=== PATIENT | male | born 1980 | race Native Hawaiian/Other Pacific Islander ===

== ENCOUNTER 2021-03-22 15:42 | Inpatient (IN) | payer BC ==
[~2021-03-22] VITALS: Ht 160 cm; Wt 81.3 kg
[2021-03-22] MEDS ORDERED: INSLAN SQ (15:48)
[2021-03-22] MEDS ORDERED: INSU100C14 SQ (15:48)
[2021-03-22] MEDS ORDERED: LISI-894 PO (15:48)
[2021-03-22 16:12] LABS: COVID AG,FIA SOURCE NASOPHARYNGEAL
[2021-03-22 16:13] LABS: BASOPHILS % (AUTO) 0.6 % (0.0-2.0); EOSINOPHILS % (AUTO) 0 % (1.0-6.0); HEMATOCRIT 44.1 % (41-53); HEMOGLOBIN 15.2 g/dL (13.5-17.5); LYMPHOCYTES # (AUTO) 0.4 K/uL (1.0-4.8); LYMPHOCYTES % (AUTO) 7.1 % (22.0-44.0); MEAN CORPUSCULAR HEMOGLOBIN 30.7 pg (26.0-34.0); MEAN CORPUSCULAR HGB CONC 34.6 G/dL (31.0-37.0); MEAN CORPUSCULAR VOLUME 89 fL (80-100); MONOCYTES # (AUTO) 0.6 K/uL (0.1-1.0); MONOCYTES % (AUTO) 9.5 % (2.0-9.0); NEUTROPHILS # (AUTO) 5.2 K/uL (1.8-7.7); NEUTROPHILS % (AUTO) 82.8 % (40.0-70.0); PLATELET COUNT (AUTO) 182 K/uL (150-450); RED BLOOD CELL COUNT(AUTO) 4.97 MIL/uL (4.50-5.90); RED CELL DISTRIBUTION WIDTH 12.9 % (11.5-14.5)
[2021-03-22] MEDS ORDERED: SODIUM CHLORIDE 0.9% 1,000 ML IV ONE ×2 (16:15→16:30)
[2021-03-22 16:20] LABS: ANION GAP 18 mmol/L (8-16); CALCIUM, TOTAL 8.6 mg/dL (8.8-10.5); CARBON DIOXIDE 23 mmol/L (22-29); CHLORIDE 96 mmol/L (98-107); CREATININE 0.88 mg/dL (0.60-1.30); GLOMERULAR FILTR. RATE CALC > 60 mL/min (>60); GLUCOSE,RANDOM 343 mg/dL (70-110); POTASSIUM 3.7 mmol/L (3.5-5.1); SODIUM SERUM 137 mmol/L (136-145); UREA NITROGEN, BLOOD 11 mg/dL (7-18)
[2021-03-22 16:26] LABS: ALANINE AMINOTRANSFERASE 27 U/L (12-78); ALBUMIN 3.2 g/dL (3.4-5.0); ALKALINE PHOSPHATASE 57 U/L (46-116); ASPARTATE AMINOTRANSFERASE 27 U/L (15-37); BILIRUBIN,TOTAL 0.5 mg/dL (0.1-1.0); CREATINE KINASE, TOTAL ONLY 66 U/L (39-308); D-DIMER 0.44 mg/L FEU (0.00-0.50); PROTHROMBIN TIME 10.4 SEC (9.4-11.6); TOTAL PROTEIN, SERUM 7.4 g/dL (6.4-8.2)
[2021-03-22] MEDS ORDERED: AZITHROMYCIN 500 MG/NS 250 ML IV ONE (16:30)
[2021-03-22] MEDS ORDERED: ACETAMINOPHEN 1000 MG/ISO-OSM 100 ML IV ONE (16:30)
[2021-03-22] MEDS ORDERED: CefTRIAXone 1 GM/DEXTROSE 50 ML IV ONE (16:30)
[2021-03-22 16:41] LABS: SOURCE, BLOOD GAS ARTERIAL; TEMPERATURE, FAHRENHEIT, BG 99.5 FAHREN (96.0-98.6)
[2021-03-22 16:42] LABS: B-TYPE NATRIURETIC PEPTIDE 23 pg/mL (0-100)
[2021-03-22 16:57] LABS: ABG BASE EXCESS -5.1 mmol/L (-2.0-3.0); ABG CARBOXYHEMOGLOBIN 0.6 % (0.0-1.5); ABG HCO3 20.9 mmol/L (22.0-26.0); ABG METHEMOGLOBIN 0.3 % (0.0-1.5); ABG OXYGEN CONTENT 18.2 mL/dL (15.0-23.0); ABG OXYGEN SATURATION 94.6 % (95.0-98.0); ABG OXYHEMOGLOBIN 93.7 % (94.0-100.0); ABG PCO2 34 mmHg (35-45); ABG PH 7.381 (7.35-7.450); ABG TOTAL HEMOGLOBIN 13.8 G/dL (12.0-18.0); O2 DEVICE,BLOOD GAS HFNC (ROOM AIR); PO2, ARTERIAL BG 77.5 mmHg (88.0-96.0); SITE, BLOOD GAS RT RADIAL
[2021-03-22 17:06] LABS: INFLUENZA TYPE A NEGATIVE FOR TYPE A (NEGATIVE); INFLUENZA TYPE B NEGATIVE FOR TYPE B (NEGATIVE)
[2021-03-22] MEDS ORDERED: ONDANSETRON HCL 4 MG/2 ML VIAL IVP PRN (17:45)
[2021-03-22] MEDS ORDERED: ALBUTEROL SULFATE HFA 90 MCG/PUFF 8 GM INHALER IH PRN (17:45)
[2021-03-22] MEDS ORDERED: DEXTROSE 50%-WATER 25 GM/50 ML SYRINGE IVP PRN (17:45)
[2021-03-22] MEDS ORDERED: ACETAMINOPHEN 325 MG TABLET PO PRN (17:45)
[2021-03-22] MEDS ORDERED: TOCILIZUMAB 640 MG in SODIUM CHLORIDE 0.9% 68 ML IV ONE (18:00)
[2021-03-22] MEDS ORDERED: REMDESIVIR 200 MG in SODIUM CHLORIDE 0.9% 250 ML IV ONE (18:15)
[2021-03-22] MEDS: DEXAMETHASONE SOD PHOS 4 MG/ML VIAL IVP SCH (18:19)
[2021-03-22 20:35] VITALS: BP 122/62
[2021-03-22] MEDS ORDERED: INSULIN GLARGINE,HUM.REC.ANLOG 100 UNITS/ML SQ SCH (21:00)
[2021-03-22 21:03] LABS: APPEARANCE,URINE CLEAR (CLEAR); BILIRUBIN,URINE NEGATIVE (NEGATIVE); GLUCOSE, URINE (UA) >=1000 mg/dL (NEGATIVE); KETONES,URINE >=80 mg/dL (NEGATIVE); LEUKOCYTE ESTERASE ,URINE NEGATIVE (NEGATIVE); NITRATE,URINE NEGATIVE (NEGATIVE); OCCULT BLOOD,URINE NEGATIVE (NEGATIVE); PH,URINE 5.5 (5.0-8.0); PROTEIN,URINE SEE CONFIRM (NEGATIVE); UROBILINOGEN,URINE 0.2 mg/dL (<=1.0)
[2021-03-22] MEDS: DOCUSATE SODIUM 100 MG CAPSULE PO SCH (21:07)
[2021-03-22] MEDS: BENZONATATE 100 MG CAPSULE PO PRN (21:07)
[2021-03-22] MEDS: FAMOTIDINE 20 MG TABLET PO SCH (21:08)
[2021-03-22 21:10] LABS: SULFOSALICYLIC ACID,URINE 2+ (Negative)
[2021-03-22] MEDS: INSULIN LISPRO 100 UNITS/ML SQ PRN (21:10)
[2021-03-22 21:36] LABS: RBC,URINE None Seen /HPF (0-2); WBC,URINE 0-2 /HPF (0-5)
[2021-03-22 21:37] LABS: BACTERIA,URINE Rare /HPF (None Seen)
[2021-03-22] MEDS: HEPARIN SODIUM,PORCINE 5,000 UNITS/ML VIAL SQ SCH (23:59)
[2021-03-23 00:18] VITALS: BP 109/76
[2021-03-23 04:22] VITALS: BP 101/69
[2021-03-23] MEDS: INSULIN LISPRO 100 UNITS/ML SQ PRN ×4 (05:53→21:14)
[2021-03-23 07:33] VITALS: BP 111/64
[2021-03-23] MEDS: HEPARIN SODIUM,PORCINE 5,000 UNITS/ML VIAL SQ SCH ×3 (09:26→23:52)
[2021-03-23] MEDS: DEXAMETHASONE SOD PHOS 4 MG/ML VIAL IVP SCH (09:26)
[2021-03-23] MEDS: DOCUSATE SODIUM 100 MG CAPSULE PO SCH ×2 (09:26→21:15)
[2021-03-23] MEDS: FAMOTIDINE 20 MG TABLET PO SCH ×2 (09:26→21:15)
[2021-03-23 11:17] VITALS: BP 123/73
[2021-03-23] MEDS ORDERED: DEXTROSE 50%-WATER 25 GM/50 ML SYRINGE IVP PRN (11:30)
[2021-03-23] MEDS: CefTRIAXone 1 GM/DEXTROSE 50 ML IV SCH (17:11)
[2021-03-23] MEDS: AZITHROMYCIN 500 MG/NS 250 ML IV SCH (17:42)
[2021-03-23] MEDS: REMDESIVIR 100 MG in SODIUM CHLORIDE 0.9% 250 ML IV SCH (18:51)
[2021-03-23 19:51] VITALS: BP 124/80
[2021-03-23] MEDS: INSULIN GLARGINE,HUM.REC.ANLOG 100 UNITS/ML SQ SCH (21:14)
[2021-03-23 23:58] VITALS: BP 116/82
[2021-03-24] MEDS: BENZONATATE 100 MG CAPSULE PO PRN ×2 (00:06→12:06)
[2021-03-24 04:13] VITALS: BP 109/72
[2021-03-24] MEDS: INSULIN LISPRO 100 UNITS/ML SQ PRN ×4 (06:06→20:56)
[2021-03-24 07:36] LABS: ALANINE AMINOTRANSFERASE 24 U/L (12-78); ALBUMIN 2.8 g/dL (3.4-5.0); ALKALINE PHOSPHATASE 53 U/L (46-116); ANION GAP 7 mmol/L (8-16); ASPARTATE AMINOTRANSFERASE 34 U/L (15-37); BILIRUBIN,TOTAL 0.4 mg/dL (0.1-1.0); CALCIUM, TOTAL 8.8 mg/dL (8.8-10.5); CARBON DIOXIDE 30 mmol/L (22-29); CHLORIDE 104 mmol/L (98-107); CREATININE 0.89 mg/dL (0.60-1.30); GLOMERULAR FILTR. RATE CALC > 60 mL/min (>60); GLUCOSE,RANDOM 231 mg/dL (70-110); POTASSIUM 3.8 mmol/L (3.5-5.1); SODIUM SERUM 141 mmol/L (136-145); TOTAL PROTEIN, SERUM 6.9 g/dL (6.4-8.2); UREA NITROGEN, BLOOD 17 mg/dL (7-18)
[2021-03-24 08:08] VITALS: BP 119/77
[2021-03-24] MEDS: HEPARIN SODIUM,PORCINE 5,000 UNITS/ML VIAL SQ SCH ×2 (08:54→15:52)
[2021-03-24] MEDS: DEXAMETHASONE SOD PHOS 4 MG/ML VIAL IVP SCH (08:54)
[2021-03-24] MEDS: DOCUSATE SODIUM 100 MG CAPSULE PO SCH ×2 (08:55→20:53)
[2021-03-24] MEDS: FAMOTIDINE 20 MG TABLET PO SCH ×2 (08:55→20:53)
[2021-03-24 12:23] VITALS: BP 127/88
[2021-03-24] MEDS: INSULIN GLARGINE,HUM.REC.ANLOG 100 UNITS/ML SQ SCH ×2 (12:49→20:56)
[2021-03-24 15:44] VITALS: BP 117/76
[2021-03-24] MEDS: CefTRIAXone 1 GM/DEXTROSE 50 ML IV SCH (15:53)
[2021-03-24] MEDS: AZITHROMYCIN 500 MG/NS 250 ML IV SCH (16:54)
[2021-03-24] MEDS: REMDESIVIR 100 MG in SODIUM CHLORIDE 0.9% 250 ML IV SCH (18:03)
[2021-03-24 19:42] VITALS: BP 125/77
[2021-03-24 23:42] VITALS: BP 103/69
[2021-03-25] MEDS: HEPARIN SODIUM,PORCINE 5,000 UNITS/ML VIAL SQ SCH ×3 (00:39→15:12)
[2021-03-25 04:00] VITALS: BP 106/72
[2021-03-25 07:43] LABS: ALANINE AMINOTRANSFERASE 23 U/L (12-78); ALBUMIN 2.5 g/dL (3.4-5.0); ALKALINE PHOSPHATASE 50 U/L (46-116); ANION GAP 8 mmol/L (8-16); ASPARTATE AMINOTRANSFERASE 33 U/L (15-37); BILIRUBIN,TOTAL 0.3 mg/dL (0.1-1.0); CALCIUM, TOTAL 7.9 mg/dL (8.8-10.5); CARBON DIOXIDE 30 mmol/L (22-29); CHLORIDE 104 mmol/L (98-107); CREATININE 0.81 mg/dL (0.60-1.30); GLOMERULAR FILTR. RATE CALC > 60 mL/min (>60); GLUCOSE,RANDOM 192 mg/dL (70-110); POTASSIUM 3.4 mmol/L (3.5-5.1); SODIUM SERUM 142 mmol/L (136-145); TOTAL PROTEIN, SERUM 6.2 g/dL (6.4-8.2); UREA NITROGEN, BLOOD 16 mg/dL (7-18)
[2021-03-25 08:04] VITALS: BP 121/84
[2021-03-25] MEDS: DOCUSATE SODIUM 100 MG CAPSULE PO SCH ×2 (09:00→21:03)
[2021-03-25] MEDS: INSULIN GLARGINE,HUM.REC.ANLOG 100 UNITS/ML SQ SCH ×2 (09:45→21:05)
[2021-03-25] MEDS: FAMOTIDINE 20 MG TABLET PO SCH ×2 (09:45→21:03)
[2021-03-25] MEDS: DEXAMETHASONE SOD PHOS 4 MG/ML VIAL IVP SCH (09:46)
[2021-03-25] MEDS ORDERED: POTASSIUM CHL 10 MEQ/WATER 50 ML IV PRN (10:00)
[2021-03-25] MEDS ORDERED: POTASSIUM CHLORIDE 20 MEQ ER TABLET PO PRN (10:00)
[2021-03-25 12:00] VITALS: BP 116/79
[2021-03-25] MEDS: INSULIN LISPRO 100 UNITS/ML SQ PRN ×3 (12:00→21:06)
[2021-03-25 15:06] VITALS: BP 109/73
[2021-03-25] MEDS: CefTRIAXone 1 GM/DEXTROSE 50 ML IV SCH (15:12)
[2021-03-25] MEDS: AZITHROMYCIN 500 MG/NS 250 ML IV SCH (16:46)
[2021-03-25] MEDS: REMDESIVIR 100 MG in SODIUM CHLORIDE 0.9% 250 ML IV SCH (17:57)
[2021-03-25 19:41] VITALS: BP 122/84
[2021-03-25] MEDS: BENZONATATE 100 MG CAPSULE PO PRN (21:02)
[2021-03-26 00:08] VITALS: BP 98/60
[2021-03-26] MEDS: HEPARIN SODIUM,PORCINE 5,000 UNITS/ML VIAL SQ SCH ×4 (00:43→23:06)
[2021-03-26] MEDS: INSULIN LISPRO 100 UNITS/ML SQ PRN ×4 (06:03→20:10)
[2021-03-26] MEDS: BENZONATATE 100 MG CAPSULE PO PRN ×2 (06:05→23:06)
[2021-03-26 07:00] LABS: BASOPHILS % (AUTO) 0.1 % (0.0-2.0); EOSINOPHILS % (AUTO) 0.2 % (1.0-6.0); HEMATOCRIT 43.6 % (41-53); HEMOGLOBIN 15.2 g/dL (13.5-17.5); LYMPHOCYTES # (AUTO) 1.1 K/uL (1.0-4.8); LYMPHOCYTES % (AUTO) 17.6 % (22.0-44.0); MEAN CORPUSCULAR HEMOGLOBIN 30.9 pg (26.0-34.0); MEAN CORPUSCULAR HGB CONC 34.9 G/dL (31.0-37.0); MEAN CORPUSCULAR VOLUME 89 fL (80-100); MONOCYTES # (AUTO) 0.8 K/uL (0.1-1.0); MONOCYTES % (AUTO) 13.7 % (2.0-9.0); NEUTROPHILS # (AUTO) 4.1 K/uL (1.8-7.7); NEUTROPHILS % (AUTO) 68.4 % (40.0-70.0); PLATELET COUNT (AUTO) 227 K/uL (150-450); RED BLOOD CELL COUNT(AUTO) 4.93 MIL/uL (4.50-5.90); RED CELL DISTRIBUTION WIDTH 13.1 % (11.5-14.5)
[2021-03-26 07:20] LABS: ALANINE AMINOTRANSFERASE 38 U/L (12-78); ALBUMIN 2.7 g/dL (3.4-5.0); ALKALINE PHOSPHATASE 50 U/L (46-116); ANION GAP 6 mmol/L (8-16); ASPARTATE AMINOTRANSFERASE 38 U/L (15-37); BILIRUBIN,TOTAL 0.4 mg/dL (0.1-1.0); CALCIUM, TOTAL 8.4 mg/dL (8.8-10.5); CARBON DIOXIDE 30 mmol/L (22-29); CHLORIDE 104 mmol/L (98-107); CREATININE 0.76 mg/dL (0.60-1.30); GLOMERULAR FILTR. RATE CALC > 60 mL/min (>60); GLUCOSE,RANDOM 203 mg/dL (70-110); POTASSIUM 3.6 mmol/L (3.5-5.1); SODIUM SERUM 140 mmol/L (136-145); TOTAL PROTEIN, SERUM 6.3 g/dL (6.4-8.2); UREA NITROGEN, BLOOD 15 mg/dL (7-18)
[2021-03-26 08:08] VITALS: BP 118/80
[2021-03-26] MEDS: INSULIN GLARGINE,HUM.REC.ANLOG 100 UNITS/ML SQ SCH ×2 (09:32→20:09)
[2021-03-26] MEDS: DEXAMETHASONE SOD PHOS 4 MG/ML VIAL IVP SCH (09:33)
[2021-03-26] MEDS: DOCUSATE SODIUM 100 MG CAPSULE PO SCH ×2 (09:33→20:11)
[2021-03-26] MEDS: FAMOTIDINE 20 MG TABLET PO SCH ×2 (09:33→19:59)
[2021-03-26 11:48] VITALS: BP 123/87
[2021-03-26] MEDS: CefTRIAXone 1 GM/DEXTROSE 50 ML IV SCH (15:55)
[2021-03-26 16:02] VITALS: BP 125/83
[2021-03-26] MEDS: AZITHROMYCIN 500 MG/NS 250 ML IV SCH (16:35)
[2021-03-26 16:38] LABS: GLUCOMETER DEV NAME(LOC) 5N.1C; GLUCOSE,POINT OF CARE 339 MG/DL (70-110)
[2021-03-26 16:38] LABS: GLUCOMETER DEV NAME(LOC) 5S.1; GLUCOSE,POINT OF CARE 314 MG/DL (70-110)
[2021-03-26 16:38] LABS: GLUCOMETER DEV NAME(LOC) 5S.1; GLUCOSE,POINT OF CARE 317 MG/DL (70-110)
[2021-03-26 16:38] LABS: GLUCOMETER DEV NAME(LOC) 5N.1C; GLUCOSE,POINT OF CARE 386 MG/DL (70-110)
[2021-03-26 16:39] LABS: GLUCOMETER DEV NAME(LOC) 5N.1C; GLUCOSE,POINT OF CARE 231 MG/DL (70-110)
[2021-03-26 16:39] LABS: GLUCOMETER DEV NAME(LOC) 5N.1C; GLUCOSE,POINT OF CARE 262 MG/DL (70-110)
[2021-03-26 16:39] LABS: GLUCOMETER DEV NAME(LOC) 5N.1C; GLUCOSE,POINT OF CARE 243 MG/DL (70-110)
[2021-03-26 16:39] LABS: GLUCOMETER DEV NAME(LOC) 5S.1; GLUCOSE,POINT OF CARE 202 MG/DL (70-110)
[2021-03-26 16:40] LABS: GLUCOMETER DEV NAME(LOC) 5N.1C; GLUCOSE,POINT OF CARE 189 MG/DL (70-110)
[2021-03-26] MEDS: REMDESIVIR 100 MG in SODIUM CHLORIDE 0.9% 250 ML IV SCH (17:34)
[2021-03-26 17:58] LABS: GLUCOMETER DEV NAME(LOC) 5N.3; GLUCOSE,POINT OF CARE 305 MG/DL (70-110)
[2021-03-26 17:58] LABS: GLUCOMETER DEV NAME(LOC) 5N.3; GLUCOSE,POINT OF CARE 300 MG/DL (70-110)
[2021-03-26 17:58] LABS: GLUCOMETER DEV NAME(LOC) 5N.3; GLUCOSE,POINT OF CARE 363 MG/DL (70-110)
[2021-03-26 17:58] LABS: GLUCOMETER DEV NAME(LOC) 5N.3; GLUCOSE,POINT OF CARE 387 MG/DL (70-110)
[2021-03-26 17:58] LABS: GLUCOMETER DEV NAME(LOC) 5N.3; GLUCOSE,POINT OF CARE 246 MG/DL (70-110)
[2021-03-26 17:59] LABS: GLUCOMETER DEV NAME(LOC) 5N.3; GLUCOSE,POINT OF CARE 264 MG/DL (70-110)
[2021-03-26 20:00] VITALS: BP 111/78
[2021-03-27 00:12] VITALS: BP 104/68
[2021-03-27 04:16] VITALS: BP 109/59
[2021-03-27] MEDS: INSULIN LISPRO 100 UNITS/ML SQ PRN ×4 (05:48→20:40)
[2021-03-27 07:30] VITALS: BP 109/73
[2021-03-27] MEDS: INSULIN GLARGINE,HUM.REC.ANLOG 100 UNITS/ML SQ SCH ×2 (08:30→20:39)
[2021-03-27] MEDS: FAMOTIDINE 20 MG TABLET PO SCH ×2 (08:31→20:45)
[2021-03-27] MEDS: HEPARIN SODIUM,PORCINE 5,000 UNITS/ML VIAL SQ SCH ×3 (08:31→23:41)
[2021-03-27] MEDS: DOCUSATE SODIUM 100 MG CAPSULE PO SCH ×2 (08:31→20:45)
[2021-03-27] MEDS: DEXAMETHASONE SOD PHOS 4 MG/ML VIAL IVP SCH (08:32)
[2021-03-27 11:15] VITALS: BP 114/79
[2021-03-27 12:16] LABS: GLUCOMETER DEV NAME(LOC) 5S.1; GLUCOSE,POINT OF CARE 93 MG/DL (70-110)
[2021-03-27 12:16] LABS: GLUCOMETER DEV NAME(LOC) 5S.1; GLUCOSE,POINT OF CARE 153 MG/DL (70-110)
[2021-03-27 12:16] LABS: GLUCOMETER DEV NAME(LOC) 5S.1; GLUCOSE,POINT OF CARE 168 MG/DL (70-110)
[2021-03-27] MEDS: CefTRIAXone 1 GM/DEXTROSE 50 ML IV SCH (16:07)
[2021-03-27 16:25] VITALS: BP 111/75
[2021-03-27] MEDS: AZITHROMYCIN 500 MG/NS 250 ML IV SCH (16:45)
[2021-03-27 17:41] LABS: GLUCOMETER DEV NAME(LOC) 5N.3; GLUCOSE,POINT OF CARE 319 MG/DL (70-110)
[2021-03-27 20:00] VITALS: BP 123/80
[2021-03-27 20:33] LABS: GLUCOMETER DEV NAME(LOC) 5S.2B; GLUCOSE,POINT OF CARE 213 MG/DL (70-110)
[2021-03-27 20:33] LABS: GLUCOMETER DEV NAME(LOC) 5S.2B; GLUCOSE,POINT OF CARE 315 MG/DL (70-110)
[2021-03-27 20:33] LABS: GLUCOMETER DEV NAME(LOC) 5S.2B; GLUCOSE,POINT OF CARE 191 MG/DL (70-110)
[2021-03-28] VITALS (7 sets, daily range): BP systolic 100–129; BP diastolic 65–80
[2021-03-28 06:11] LABS: GLUCOMETER DEV NAME(LOC) 5N.1C; GLUCOSE,POINT OF CARE 154 MG/DL (70-110)
[2021-03-28] MEDS: INSULIN LISPRO 100 UNITS/ML SQ PRN ×3 (06:46→17:19)
[2021-03-28 07:26] LABS: GLUCOMETER DEV NAME(LOC) 5S.2B; GLUCOSE,POINT OF CARE 131 MG/DL (70-110)
[2021-03-28] MEDS: HEPARIN SODIUM,PORCINE 5,000 UNITS/ML VIAL SQ SCH ×3 (08:36→23:39)
[2021-03-28] MEDS: DEXAMETHASONE SOD PHOS 4 MG/ML VIAL IVP SCH (08:36)
[2021-03-28] MEDS: FAMOTIDINE 20 MG TABLET PO SCH ×2 (08:36→21:09)
[2021-03-28] MEDS: DOCUSATE SODIUM 100 MG CAPSULE PO SCH ×2 (08:36→21:08)
[2021-03-28] MEDS: INSULIN GLARGINE,HUM.REC.ANLOG 100 UNITS/ML SQ SCH ×2 (08:47→21:00)
[2021-03-28] MEDS: CefTRIAXone 1 GM/DEXTROSE 50 ML IV SCH (15:52)
[2021-03-28] MEDS: AZITHROMYCIN 500 MG/NS 250 ML IV SCH (16:43)
[2021-03-28 17:58] LABS: ALANINE AMINOTRANSFERASE 157 U/L (12-78); ALBUMIN 2.8 g/dL (3.4-5.0); ALKALINE PHOSPHATASE 55 U/L (46-116); ANION GAP 7 mmol/L (8-16); ASPARTATE AMINOTRANSFERASE 77 U/L (15-37); BILIRUBIN,TOTAL 0.4 mg/dL (0.1-1.0); CALCIUM, TOTAL 7.9 mg/dL (8.8-10.5); CARBON DIOXIDE 30 mmol/L (22-29); CHLORIDE 101 mmol/L (98-107); CREATININE 0.82 mg/dL (0.60-1.30); GLOMERULAR FILTR. RATE CALC > 60 mL/min (>60); GLUCOSE,RANDOM 244 mg/dL (70-110); POTASSIUM 4.4 mmol/L (3.5-5.1); SODIUM SERUM 138 mmol/L (136-145); TOTAL PROTEIN, SERUM 6.1 g/dL (6.4-8.2); UREA NITROGEN, BLOOD 15 mg/dL (7-18)
[2021-03-28 20:06] LABS: GLUCOMETER DEV NAME(LOC) 5S.1; GLUCOSE,POINT OF CARE 261 MG/DL (70-110)
[2021-03-28 20:06] LABS: GLUCOMETER DEV NAME(LOC) 5S.1; GLUCOSE,POINT OF CARE 177 MG/DL (70-110)
[2021-03-29 03:38] VITALS: BP 130/74
[2021-03-29 08:04] VITALS: BP 128/74
[2021-03-29] MEDS: DOCUSATE SODIUM 100 MG CAPSULE PO SCH ×2 (08:35→20:07)
[2021-03-29] MEDS: FAMOTIDINE 20 MG TABLET PO SCH ×2 (08:36→20:07)
[2021-03-29] MEDS: DEXAMETHASONE SOD PHOS 4 MG/ML VIAL IVP SCH (08:36)
[2021-03-29] MEDS: HEPARIN SODIUM,PORCINE 5,000 UNITS/ML VIAL SQ SCH ×2 (08:37→16:45)
[2021-03-29] MEDS: INSULIN GLARGINE,HUM.REC.ANLOG 100 UNITS/ML SQ SCH ×2 (08:47→20:08)
[2021-03-29 11:19] VITALS: BP 116/82
[2021-03-29] MEDS: INSULIN LISPRO 100 UNITS/ML SQ PRN ×3 (12:11→20:08)
[2021-03-29 15:43] VITALS: BP 128/80
[2021-03-29] MEDS: CefTRIAXone 1 GM/DEXTROSE 50 ML IV SCH (16:45)
[2021-03-29] MEDS: AZITHROMYCIN 500 MG/NS 250 ML IV SCH (17:27)
[2021-03-29 20:03] VITALS: BP 124/85
[2021-03-30] MEDS: HEPARIN SODIUM,PORCINE 5,000 UNITS/ML VIAL SQ SCH ×4 (00:04→23:40)
[2021-03-30] MEDS: ZOLPIDEM TARTRATE 5 MG TABLET PO PRN ×2 (00:05→21:05)
[2021-03-30 00:47] VITALS: BP 99/64
[2021-03-30 05:55] VITALS: BP 97/51
[2021-03-30 07:45] VITALS: BP 100/64
[2021-03-30] MEDS: DEXAMETHASONE SOD PHOS 4 MG/ML VIAL IVP SCH (08:36)
[2021-03-30] MEDS: INSULIN GLARGINE,HUM.REC.ANLOG 100 UNITS/ML SQ SCH ×2 (08:36→20:59)
[2021-03-30] MEDS: FAMOTIDINE 20 MG TABLET PO SCH ×2 (08:36→20:57)
[2021-03-30] MEDS: DOCUSATE SODIUM 100 MG CAPSULE PO SCH ×2 (08:55→20:57)
[2021-03-30 11:46] VITALS: BP 131/78
[2021-03-30] MEDS: INSULIN LISPRO 100 UNITS/ML SQ PRN ×2 (13:06→21:00)
[2021-03-30 14:45] LABS: BASOPHILS % (AUTO) 0.4 % (0.0-2.0); EOSINOPHILS % (AUTO) 0.8 % (1.0-6.0); HEMATOCRIT 48.6 % (41-53); HEMOGLOBIN 16.4 g/dL (13.5-17.5); LYMPHOCYTES # (AUTO) 0.5 K/uL (1.0-4.8); LYMPHOCYTES % (AUTO) 5.3 % (22.0-44.0); MEAN CORPUSCULAR HEMOGLOBIN 30.4 pg (26.0-34.0); MEAN CORPUSCULAR HGB CONC 33.8 G/dL (31.0-37.0); MEAN CORPUSCULAR VOLUME 90 fL (80-100); MONOCYTES # (AUTO) 0.4 K/uL (0.1-1.0); MONOCYTES % (AUTO) 3.8 % (2.0-9.0); NEUTROPHILS # (AUTO) 9.1 K/uL (1.8-7.7); NEUTROPHILS % (AUTO) 89.7 % (40.0-70.0); PLATELET COUNT (AUTO) 320 K/uL (150-450); RED BLOOD CELL COUNT(AUTO) 5.39 MIL/uL (4.50-5.90); RED CELL DISTRIBUTION WIDTH 13.5 % (11.5-14.5)
[2021-03-30 14:57] LABS: ANION GAP 6 mmol/L (8-16); CALCIUM, TOTAL 8.3 mg/dL (8.8-10.5); CARBON DIOXIDE 29 mmol/L (22-29); CHLORIDE 100 mmol/L (98-107); CREATININE 0.88 mg/dL (0.60-1.30); GLOMERULAR FILTR. RATE CALC > 60 mL/min (>60); GLUCOSE,RANDOM 380 mg/dL (70-110); POTASSIUM 4.6 mmol/L (3.5-5.1); SODIUM SERUM 135 mmol/L (136-145); UREA NITROGEN, BLOOD 17 mg/dL (7-18)
[2021-03-30 15:02] LABS: ALANINE AMINOTRANSFERASE 145 U/L (12-78); ALBUMIN 3.1 g/dL (3.4-5.0); ALKALINE PHOSPHATASE 57 U/L (46-116); ASPARTATE AMINOTRANSFERASE 54 U/L (15-37); BILIRUBIN,TOTAL 0.5 mg/dL (0.1-1.0); TOTAL PROTEIN, SERUM 6.8 g/dL (6.4-8.2)
[2021-03-30 16:18] VITALS: BP 118/80
[2021-03-30] MEDS: CefTRIAXone 1 GM/DEXTROSE 50 ML IV SCH (17:36)
[2021-03-30] MEDS: AZITHROMYCIN 500 MG/NS 250 ML IV SCH (18:21)
[2021-03-30 20:18] VITALS: BP 124/83
[2021-03-31] VITALS (7 sets, daily range): BP systolic 104–139; BP diastolic 67–88
[2021-03-31 07:36] LABS: BASOPHILS % (AUTO) 0.4 % (0.0-2.0); EOSINOPHILS % (AUTO) 1.8 % (1.0-6.0); HEMATOCRIT 47.7 % (41-53); HEMOGLOBIN 16.2 g/dL (13.5-17.5); LYMPHOCYTES # (AUTO) 1.7 K/uL (1.0-4.8); LYMPHOCYTES % (AUTO) 17.2 % (22.0-44.0); MEAN CORPUSCULAR HEMOGLOBIN 30.7 pg (26.0-34.0); MEAN CORPUSCULAR HGB CONC 33.9 G/dL (31.0-37.0); MEAN CORPUSCULAR VOLUME 90 fL (80-100); MONOCYTES # (AUTO) 1.5 K/uL (0.1-1.0); NEUTROPHILS # (AUTO) 6.5 K/uL (1.8-7.7); NEUTROPHILS % (AUTO) 65.6 % (40.0-70.0); PLATELET COUNT (AUTO) 306 K/uL (150-450); RED BLOOD CELL COUNT(AUTO) 5.28 MIL/uL (4.50-5.90); RED CELL DISTRIBUTION WIDTH 13.8 % (11.5-14.5)
[2021-03-31 07:39] LABS: ALANINE AMINOTRANSFERASE 117 U/L (12-78); ALBUMIN 3.1 g/dL (3.4-5.0); ALKALINE PHOSPHATASE 51 U/L (46-116); ANION GAP 4 mmol/L (8-16); ASPARTATE AMINOTRANSFERASE 34 U/L (15-37); BILIRUBIN,TOTAL 0.5 mg/dL (0.1-1.0); CALCIUM, TOTAL 8.6 mg/dL (8.8-10.5); CARBON DIOXIDE 33 mmol/L (22-29); CHLORIDE 103 mmol/L (98-107); CREATININE 0.84 mg/dL (0.60-1.30); GLOMERULAR FILTR. RATE CALC > 60 mL/min (>60); GLUCOSE,RANDOM 71 mg/dL (70-110); SODIUM SERUM 140 mmol/L (136-145); TOTAL PROTEIN, SERUM 6.7 g/dL (6.4-8.2); UREA NITROGEN, BLOOD 15 mg/dL (7-18)
[2021-03-31] MEDS: HEPARIN SODIUM,PORCINE 5,000 UNITS/ML VIAL SQ SCH ×2 (08:30→16:23)
[2021-03-31] MEDS: DEXAMETHASONE SOD PHOS 4 MG/ML VIAL IVP SCH (08:31)
[2021-03-31] MEDS: DOCUSATE SODIUM 100 MG CAPSULE PO SCH ×2 (08:32→21:19)
[2021-03-31] MEDS: FAMOTIDINE 20 MG TABLET PO SCH ×2 (08:32→21:19)
[2021-03-31] MEDS: INSULIN GLARGINE,HUM.REC.ANLOG 100 UNITS/ML SQ SCH ×2 (08:43→21:29)
[2021-03-31 11:51] LABS: GLUCOMETER DEV NAME(LOC) 5N.3; GLUCOSE,POINT OF CARE 106 MG/DL (70-110)
[2021-03-31 11:51] LABS: GLUCOMETER DEV NAME(LOC) 5N.3; GLUCOSE,POINT OF CARE 164 MG/DL (70-110)
[2021-03-31 11:51] LABS: GLUCOMETER DEV NAME(LOC) 5N.3; GLUCOSE,POINT OF CARE 254 MG/DL (70-110)
[2021-03-31 11:51] LABS: GLUCOMETER DEV NAME(LOC) 5N.3; GLUCOSE,POINT OF CARE 238 MG/DL (70-110)
[2021-03-31 11:51] LABS: GLUCOMETER DEV NAME(LOC) 5N.3; GLUCOSE,POINT OF CARE 221 MG/DL (70-110)
[2021-03-31 11:51] LABS: GLUCOMETER DEV NAME(LOC) 5N.3; GLUCOSE,POINT OF CARE 183 MG/DL (70-110)
[2021-03-31 11:51] LABS: GLUCOMETER DEV NAME(LOC) 5N.3; GLUCOSE,POINT OF CARE 286 MG/DL (70-110)
[2021-03-31] MEDS: INSULIN LISPRO 100 UNITS/ML SQ PRN ×3 (11:51→21:33)
[2021-03-31] MEDS: CefTRIAXone 1 GM/DEXTROSE 50 ML IV SCH (15:36)
[2021-03-31] MEDS: AZITHROMYCIN 500 MG/NS 250 ML IV SCH (16:23)
[2021-04-01 00:11] LABS: GLUCOMETER DEV NAME(LOC) 5S.1; GLUCOSE,POINT OF CARE 226 MG/DL (70-110)
[2021-04-01 00:11] LABS: GLUCOMETER DEV NAME(LOC) 5S.1; GLUCOSE,POINT OF CARE 231 MG/DL (70-110)
[2021-04-01 00:11] LABS: GLUCOMETER DEV NAME(LOC) 5S.1; GLUCOSE,POINT OF CARE 307 MG/DL (70-110)
[2021-04-01 00:11] LABS: GLUCOMETER DEV NAME(LOC) 5S.1; GLUCOSE,POINT OF CARE 84 MG/DL (70-110)
[2021-04-01 00:12] LABS: GLUCOMETER DEV NAME(LOC) 5S.1; GLUCOSE,POINT OF CARE 81 MG/DL (70-110)
[2021-04-01 00:12] LABS: GLUCOMETER DEV NAME(LOC) 5S.1; GLUCOSE,POINT OF CARE 213 MG/DL (70-110)
[2021-04-01] MEDS: HEPARIN SODIUM,PORCINE 5,000 UNITS/ML VIAL SQ SCH ×3 (00:22→17:00)
[2021-04-01] MEDS: ZOLPIDEM TARTRATE 5 MG TABLET PO PRN (00:26)
[2021-04-01 03:59] VITALS: BP 128/85
[2021-04-01 06:47] LABS: BASOPHILS % (AUTO) 0.6 % (0.0-2.0); HEMATOCRIT 45.3 % (41-53); HEMOGLOBIN 15.7 g/dL (13.5-17.5); LYMPHOCYTES # (AUTO) 1.5 K/uL (1.0-4.8); LYMPHOCYTES % (AUTO) 18.8 % (22.0-44.0); MEAN CORPUSCULAR HEMOGLOBIN 30.9 pg (26.0-34.0); MEAN CORPUSCULAR HGB CONC 34.6 G/dL (31.0-37.0); MEAN CORPUSCULAR VOLUME 89 fL (80-100); MONOCYTES # (AUTO) 1.3 K/uL (0.1-1.0); MONOCYTES % (AUTO) 15.6 % (2.0-9.0); NEUTROPHILS # (AUTO) 5.1 K/uL (1.8-7.7); PLATELET COUNT (AUTO) 265 K/uL (150-450); RED BLOOD CELL COUNT(AUTO) 5.07 MIL/uL (4.50-5.90); RED CELL DISTRIBUTION WIDTH 13.5 % (11.5-14.5)
[2021-04-01 07:08] LABS: ALANINE AMINOTRANSFERASE 91 U/L (12-78); ALBUMIN 2.9 g/dL (3.4-5.0); ALKALINE PHOSPHATASE 47 U/L (46-116); ANION GAP 3 mmol/L (8-16); ASPARTATE AMINOTRANSFERASE 30 U/L (15-37); BILIRUBIN,TOTAL 0.5 mg/dL (0.1-1.0); CALCIUM, TOTAL 8.5 mg/dL (8.8-10.5); CARBON DIOXIDE 34 mmol/L (22-29); CHLORIDE 102 mmol/L (98-107); CREATININE 0.87 mg/dL (0.60-1.30); GLOMERULAR FILTR. RATE CALC > 60 mL/min (>60); GLUCOSE,RANDOM 98 mg/dL (70-110); POTASSIUM 3.6 mmol/L (3.5-5.1); SODIUM SERUM 139 mmol/L (136-145); TOTAL PROTEIN, SERUM 6.3 g/dL (6.4-8.2); UREA NITROGEN, BLOOD 14 mg/dL (7-18)
[2021-04-01] MEDS: FAMOTIDINE 20 MG TABLET PO SCH ×2 (08:32→21:12)
[2021-04-01] MEDS: DOCUSATE SODIUM 100 MG CAPSULE PO SCH ×2 (08:32→21:12)
[2021-04-01] MEDS: DEXAMETHASONE SOD PHOS 4 MG/ML VIAL IVP SCH (08:32)
[2021-04-01 08:33] VITALS: BP 119/70
[2021-04-01] MEDS: INSULIN GLARGINE,HUM.REC.ANLOG 100 UNITS/ML SQ SCH ×2 (08:33→21:21)
[2021-04-01 08:46] LABS: GLUCOMETER DEV NAME(LOC) 5N.1C; GLUCOSE,POINT OF CARE 195 MG/DL (70-110)
[2021-04-01 08:46] LABS: GLUCOMETER DEV NAME(LOC) 5N.1C; GLUCOSE,POINT OF CARE 230 MG/DL (70-110)
[2021-04-01] MEDS: INSULIN LISPRO 100 UNITS/ML SQ PRN ×3 (11:47→21:21)
[2021-04-01 12:23] VITALS: BP 116/61
[2021-04-01] MEDS: CefTRIAXone 1 GM/DEXTROSE 50 ML IV SCH (15:43)
[2021-04-01 16:25] VITALS: BP 120/68
[2021-04-01] MEDS: AZITHROMYCIN 500 MG/NS 250 ML IV SCH (17:00)
[2021-04-01 20:12] VITALS: BP 121/68
[2021-04-01 22:21] LABS: GLUCOMETER DEV NAME(LOC) 5S.2B; GLUCOSE,POINT OF CARE 149 MG/DL (70-110)
[2021-04-01 22:21] LABS: GLUCOMETER DEV NAME(LOC) 5S.2B; GLUCOSE,POINT OF CARE 243 MG/DL (70-110)
[2021-04-02] MEDS: HEPARIN SODIUM,PORCINE 5,000 UNITS/ML VIAL SQ SCH
[2021-04-02 06:47] LABS: GLUCOMETER DEV NAME(LOC) 5S.1; GLUCOSE,POINT OF CARE 189 MG/DL (70-110)
[2021-04-03 19:31] LABS: GLUCOMETER DEV NAME(LOC) 5N.3; GLUCOSE,POINT OF CARE 91 MG/DL (70-110)
== END 2021-04-02 00:01 | disposition home or self-care (01) | DRG 177 ==
LOC: EMS 15:45 → 5N 19:15
PROVIDERS: ADMIT Internal Medicine; ATTEND Internal Medicine
PROC: XW033E5 Introduction of Remdesivir Anti-infective into Peripheral Vein, Percutaneous Approach, New Technology Group 5 (ICD-10-PCS; principal; 2021-03-22)
PROC: XW033H5 Introduction of Tocilizumab into Peripheral Vein, Percutaneous Approach, New Technology Group 5 (ICD-10-PCS; 2021-03-22)
PROC: 5A0935A Assistance with Respiratory Ventilation, Less than 24 Consecutive Hours, High Flow/Velocity Cannula (ICD-10-PCS; 2021-03-22)
PROC: 5A0935A Assistance with Respiratory Ventilation, Less than 24 Consecutive Hours, High Flow/Velocity Cannula (ICD-10-PCS; 2021-03-23)
PROC: 5A0945A Assistance with Respiratory Ventilation, 24-96 Consecutive Hours, High Flow/Velocity Cannula (ICD-10-PCS; 2021-03-24)
PROC: 5A0945A Assistance with Respiratory Ventilation, 24-96 Consecutive Hours, High Flow/Velocity Cannula (ICD-10-PCS; 2021-03-26)
PROC: 5A0945A Assistance with Respiratory Ventilation, 24-96 Consecutive Hours, High Flow/Velocity Cannula (ICD-10-PCS; 2021-03-27)
PROC: 5A0945A Assistance with Respiratory Ventilation, 24-96 Consecutive Hours, High Flow/Velocity Cannula (ICD-10-PCS; 2021-03-28)
PROC: 5A0945A Assistance with Respiratory Ventilation, 24-96 Consecutive Hours, High Flow/Velocity Cannula (ICD-10-PCS; 2021-03-29)
DX: U07.1 COVID-19 (principal); J80 Acute respiratory distress syndrome; J12.82 Pneumonia due to coronavirus disease 2019; R00.0 Tachycardia, unspecified; E11.65 Type 2 diabetes mellitus with hyperglycemia; E66.9 Obesity, unspecified; E87.6 Hypokalemia; Z79.4 Long term (current) use of insulin; Z68.31 Body mass index [BMI] 31.0-31.9, adult; Z79.899 Other long term (current) drug therapy
CPT/HCPCS: 36600; 71045; 80053; 81001; 81002; 81003; 82550; 82805; 82962; 83605; 83880; 84132; 84145; 84484; 85025; 85379; 85610; 85730; 86140; 87804; 93005; 94760; 99291; J0131; J0456; J0696; J1100; J1644; J1815; J3535; J7030; J7050; Q9967; 36415-L1; 36415-TC; U0003